=== PATIENT | male | born 1990 | race Caucasian/White ===

== ENCOUNTER 2016-08-07 11:24 | Emergency (ER) | payer SELFPAY ==
[~2016-08-07] VITALS: Ht 190.5 cm; Wt 71.6 kg
[~2016-08-07 11:24] MED LIST: CEPH500T PO
[2016-08-07 11:34] VITALS: BP 113/78; PULSE 89; RESP 16; TEMP 98.2; O2SAT 98
--- NOTE | 2016-08-07 12:04 | PD ---
HPI Chief Complaint: Injury Time Seen by Provider: 11:35 Travel History International Travel<30 days: No Contact w/Intl Traveler<30days: No Traveled to known affect area: No History of Present Illness HPI Patient is a 26-year-old male who presents emergency Department for evaluation of right hand pain. Patient states he punched a wall 3 days ago. Since that time he's had pain, swelling, and bruising. He's been utilizing ice and had a compression wrap on it on arrival. He states his pain is a 6/10. He denies any numbness or tingling in his hand, he states his pain is aching and throbbing. He denies any other complaints at this time, he does state that he was intoxicated when the event happened and is unsure of details. [facility] Past Medical History Medical History: Denies Significant Hx Diminished Hearing: No Immunizations Current: No Past Surgical History Neurologic Surgery: Yes (RODS IN BACK ) Pacemaker: No Other Surgery: Yes Social History Alcohol Use: Yes (SOCIALLY) Tobacco Use: Yes (1 PPD) Substance Use: No Allergies-Medications (Allergen,Severity, Reaction): Coded Allergies: Morphine (Verified Adverse Reaction, Unknown, Nausea/Vomiting, 08/07/16) Reported Meds & Prescriptions Reported Meds & Active Scripts Active Tramadol (Tramadol HCl) 50 Mg Tab 50 Mg PO Q6H PRN Review of Systems Except as stated in HPI: all other systems reviewed are Neg Musculoskeletal: Positive: Myalgias, Arthralgias, Limited ROM, Edema, Pain Skin: Positive Change in Pigmentation Physical Exam Narrative GENERAL: Well-nourished, well-developed patient. SKIN: Warm and dry. HEAD: Normocephalic. EYES: No scleral icterus. No injection or drainage. NECK: Supple, trachea midline. No JVD or lymphadenopathy. CARDIOVASCULAR: Regular rate and rhythm without murmurs, gallops, or rubs. RESPIRATORY: Breath sounds equal bilaterally. No accessory muscle use. GASTROINTESTINAL: Abdomen soft, non-tender, nondistended. MUSCULOSKELETAL: No cyanosis, edema noted to the right hand on the dorsal aspect and in the second through fourth fingers. Ecchymosis noted to the volar aspect of the right hand as well as the dorsal aspect. Positive radial pulse, brisk less than 3 second capillary refill. BACK: Nontender without obvious deformity. No CVA tenderness. Data Data Last Documented VS Vital Signs Date Time Temp Pulse Resp B/P Pulse Ox O2 Delivery O2 Flow Rate FiO2 08/07/16 11:34 98.2 89 16 113/78 98 Orders Hand, Complete ([id number]) (08/07/16 ) Ice/Cold Pack (08/07/16 11:41) Splint Or Brace Apply/Monitor (08/07/16 13:33) Support Splint (08/07/16 13:33) MDM Medical Decision Making Medical Screen Exam Complete: Yes Emergency Medical Condition: Yes Interpretation(s) Last Impressions Hand X-Ray 08/07/16 0000 Signed Impressions: Service Date/Time: Sunday, August 07, 2016 11:51 - CONCLUSION: Fracture fourth metacarpal. Valdo Hemphill MD Vital Signs Date Time Temp Pulse Resp B/P Pulse Ox O2 Delivery O2 Flow Rate FiO2 08/07/16 11:34 98.2 89 16 113/78 98 Differential Diagnosis Fracture versus sprain versus strain versus dislocation versus other Narrative Course Patient's 26-year-old male who presents emergency evaluation of right hand pain and swelling after punching a wall or a window 3 days ago. Patient is neurovascularly intact. There is edema and ecchymosis noted to the right hand. Motor function and sensory are intact. Imaging ordered and pending. Patient has a mildly displaced fourth metacarpal fracture. Patient was placed in ulnar gutter splint. Mandatory referral was made for outpatient follow-up with hand surgeon. Patient was advised to return to emergency department if he was unable to follow up with specialist. He was advised to return to emergency department immediately for any new or worsening symptoms. Patient verbalized understanding of these instructions. Patient stable for discharge. Diagnosis Primary Impression: Hand fracture Qualified Code: S62.91XA - Hand fracture, right, closed, initial encounter Referrals: Rolf Pineda III, MD 1 week Patient Instructions: General Instructions, Hand Fracture (ED) Additional Instructions: Follow-up with hand surgeon, a mandatory referral has been made for you Keep extremity elevated to help alleviate swelling Take medications as directed Do not drive or operate heavy machinery while taking narcotic pain medication. Do not mix narcotic pain medication with alcohol as this may increase sedative effects or cause respiratory depression Return to emergency department immediately for any new or worsening symptoms or if your unable to follow-up with hand surgeon Med/Other Pt SpecificInfo: Prescription(s) given Scripts Ibuprofen 800 Mg [id number] Mg PO Q6HR PRN (PAIN) 10 Days Ref 0 Prov:Zoe Worthington 08/07/16 Tramadol 50 Mg Tab50 Mg PO Q6H PRN (PAIN) #12 TAB Ref 0 Prov:Giancarlo Vivas MD 08/07/16 Disposition: 01 DISCHARGE HOME Condition: Stable Zoe Worthington Aug 07, 2016 12:04
--- NOTE | 2016-08-07 13:24 | RADHPO ---
EXAM DATE/TIME: 08/07/2016 11:51 [facility] COMPARISON: No previous studies available for comparison. INDICATIONS : Hit window with hand, has pain and swelling MEDICAL HISTORY : None. SURGICAL HISTORY : None. ENCOUNTER: Initial ACUITY: 3 calix PAIN SCORE: 8/10 LOCATION: Right hand FINDINGS: Three view examination of the right hand demonstrates soft tissue swelling and mildly displaced fract ure base of the fourth metacarpal. Remaining carpal bones are intact. Bony mineralization is normal. CONCLUSION: Fracture fourth metacarpal. Valdo Hemphill MD on August 07, 2016 at 13:22 Board Certified Radiologist. This report was verified electronically.
[2016-08-07] MEDS ORDERED: TRAM50TA PO (13:44)
[2016-08-07] MEDS ORDERED: IBUP800T23 PO (13:49)
[2016-08-11] MEDS ORDERED: NORC5TAB PO (14:45)
[2016-08-11] MEDS ORDERED: CEPH-460 PO (14:45)
== END 2016-08-07 13:59 | disposition home or self-care (01) ==
LOC: PHEFT 11:24
DX: S62.324A Displaced fracture of shaft of fourth metacarpal bone, right hand, initial encounter for closed fracture (principal); W22.01XA Walked into wall, initial encounter; F17.210 Nicotine dependence, cigarettes, uncomplicated
CPT/HCPCS: 29125; 73130

== ENCOUNTER → 2016-08-11 | Day surgery (SDC) | payer SELFPAY ==
[~2016-08-11] VITALS: Ht 193 cm; Wt 68.0 kg
[~2016-08-11] MED LIST changes: +*MEPERIDINE 25 MG INJ VIAL PERIprocedural Use ONLY ONE; +ACETAMINOPHEN 1000 MG/100 ML VIAL IV ONE; +AMOX500T PO; +BUPIVACAINE HCL PF 0.5% 30 ML VIAL ONE; +CEPH-460 PO; -CEPH500T PO; +HYDR1SOL3 PO; +IBUP800T23 PO; +LACTATED RINGER'S 1000 ML INJ 1,000 ML ONE; +LIDOCAINE HCL 2% 50 ML VIAL ONE; +MAGICADU2 SWISH-SWAL; +MEPERIDINE HCL 25 MG/ML VIAL ONE; +MIDAZOLAM HCL 2 MG/2 ML VIAL ONE; +NORC5TAB PO; +ONDANSETRON HCL 4 MG/2 ML VIAL IV PUSH ONE; +PROPOFOL 200 MG/20 ML AMP IV ONE; +SODIUM CHLORIDE 0.9% INJ 50 ML ONE; +TRAM50TA PO; +ZOFR4TAB3 SL; +[UNRECOGNIZED DRUG - CODE] PO; +ceFAZolin INJ 1,000 MG VIAL ONE; +oxyCODONE/ACETAMINOPHEN 5 MG/325 MG TAB ONE
[2016-08-11 11:05] LABS: MEAN CORPUSCULAR HGB CONC 36.2 % (32.0-36.0)
[2016-08-11 11:25] VITALS: BP 112/75; PULSE 74; RESP 16; TEMP 98; O2SAT 99
[2016-08-11 12:11] LABS: HEMATOCRIT 29.4 % (39.0-51.0); MEAN CELL VOLUME 91.2 FL (80.0-100.0); PLATELET COUNT 160 TH/MM3 (150-450); RED BLOOD COUNT 3.22 MIL/MM3 (4.50-5.90); RED CELL DISTRIBUTION WIDTH 12.8 % (11.6-17.2); WHITE BLOOD COUNT 3.9 TH/MM3 (4.0-11.0)
[2016-08-11 12:16] LABS: REVIEW FLAG FINAL
--- NOTE | 2016-08-11 14:46 | HHI.PR ---
Immediate Post Op Note Procedure Date: Aug 11, 2016 Pre Op Diagnosis: (1) Fracture of fourth metacarpal bone of right hand (2) Closed dislocation of fifth metacarpal bone of right hand Post Op Diagnosis: Surgeon: Rolf Pineda III Water Project Engineer(s): rustam Procedure: CRPP right 4th metacarpal CRPP right 5th CMC fracture dislocation Anesthesia: General, Local Drains: None IVF Patient to: PACU Patient Condition: Good Implant/Devices: SEE IMPLANT LOG (if applicable) Rolf Pineda III, MD Aug 11, 2016 14:46
[2016-08-11 17:15] VITALS: BP 127/88; PULSE 58; RESP 16; TEMP 98.1; O2SAT 99
--- NOTE | 2016-08-12 07:59 | MP ---
cc: ROLF PINEDA III, M.D. DATE OF OPERATION 08/11/2016 PREOPERATIVE DIAGNOSES 1. Right fourth metacarpal fracture. 2. Right fifth CMC fracture-dislocation. PROCEDURE 1. Closed reduction and percutaneous pinning right fifth CMC fracture dislocation. 2. Closed reduction and percutaneous pinning right fourth metacarpal. 3. Use of image intensifier. SURGEON Rolf Pineda III, MD PROCEDURE The patient was brought to the operating room and placed supine on the operating table. The correct side and site of surgery were verified with members of each team in the room multiple times including the patient and myself. After adequate preoperative markings and preoperative written consent were verified by everyone and after adequate preoperative time-out was performed to everyone's satisfaction and, after adequate general anesthesia had been achieved, the right upper extremity was prepped and draped in the traditional sterile surgical fashion. A 50/50 mixture of 2% plain lidocaine and 0.5% plain Marcaine was injected into the areas of the injuries. Examination in real-time under mini C-arm fluoroscopy was performed that showed completely dislocated fifth CMC joint. This was then reduced, held in place and secured in place with two separate 0.045-cm K-wires at differing angles. The K-wires were tailored to length, cut bent and Jurgan's balls applied. Doing this helped nearly-completely reducing the fourth metacarpal and I was able to get this a bit better reduced with another K-wire placed in a longitudinal fashion in a dorsal to volar direction securing the fracture. Passive range of motion examination was performed and was full. There was no mal-angulation or malrotation of any fingers. Additional local anesthetic was injected for postoperative pain relief. The pins were tailored to length, cut, bent, Jurgan's balls applied. The hand and arm were thoroughly cleansed and dried. Betadine and Xeroform was applied around the pin sites and a well-padded, well molded ulnar volar splint keeping the third, fourth and fifth fingers completely immobilized was made in the usual fashion. The patient was awakened from anesthesia and transported to the Post-Anesthesia Care Unit awake and in stable condition at the end of the case. The sponge, needle and instrument counts were correct at the end of the case as reported by the nurses in the room. Capillary refill was less than 2 seconds in all fingertips the entire time. MD SHARON Mcintyre III/MARLENI /2:37 PM /7:45 AM
== END | disposition home or self-care (01) ==
LOC: CSDC 10:55
PROVIDERS: ATTEND Orthopaedic Surgery Hand Surgery
DX: S62.304A Unspecified fracture of fourth metacarpal bone, right hand, initial encounter for closed fracture (principal); S63.266A Dislocation of metacarpophalangeal joint of right little finger, initial encounter; W22.09XA Striking against other stationary object, initial encounter
CPT/HCPCS: 01820; 26608; 36415; 76000; 85027; J0131; J0690; J2175; J2250; J2405; J3010; J7120

== ENCOUNTER 2016-09-26 15:02 | Emergency (ER) | payer SELFPAY ==
[~2016-09-26] VITALS: Ht 193 cm; Wt 70.0 kg
[2016-09-26 15:18] VITALS: BP 118/78; PULSE 100; RESP 20; TEMP 100.4; O2SAT 95
[2016-09-26 15:29] VITALS: BP 119/74; PULSE 94; RESP 18; TEMP 101; O2SAT 97
--- NOTE | 2016-09-26 15:41 | PD ---
HPI Chief Complaint: Cold / Flu Symptoms Time Seen by Provider: 15:36 Travel History International Travel<30 days: No Contact w/Intl Traveler<30days: No Traveled to known affect area: No History of Present Illness HPI Patient presents with complaints of general malaise subjective fever and cough since . Reports nausea and vomiting since last night. Denies any new rashes. Positive smoker. Reports no bowel movement for 3-4 days. No new rashes. No sick contacts. PFSH Past Medical History Medical History: Denies Significant Hx Cancer: No Cardiovascular Problems: No Diabetes: No Diminished Hearing: No Endocrine: No Genitourinary: No Hepatitis: No Hiatal Hernia: No Immune Disorder: No Musculoskeletal: Yes (MULTIPLE FRACTURES IN PAST) Neurologic: No Psychiatric: No Reproductive: No Respiratory: No Immunizations Current: No Thyroid Disease: No Tetanus Vaccination: Unknown Influenza Vaccination: No Past Surgical History Surgical History: No Previous Surgery Abdominal Surgery: No Body Medical Devices: RODS IN BACK Cardiac Surgery: No Ear Surgery: No Endocrine Surgery: No Eye Surgery: No Genitourinary Surgery: No Gynecologic Surgery: No Neurologic Surgery: Yes (RODS IN BACK ) Oral Surgery: No Pacemaker: No Thoracic Surgery: No Other Surgery: Yes Social History Alcohol Use: No Tobacco Use: Yes (07/05 ppd) Substance Use: No Allergies-Medications (Allergen,Severity, Reaction): Coded Allergies: Morphine (Verified Adverse Reaction, Unknown, Nausea/Vomiting, 09/26/16) Reported Meds & Prescriptions Reported Meds & Active Scripts Active No Active Prescriptions or Reported Medications Review of Systems General / Constitutional: Positive: Fever Respiratory: Positive: Cough Gastrointestinal: Positive: Nausea, Vomiting Musculoskeletal: Positive: Myalgias Physical Exam Narrative GENERAL: Well-nourished, well-developed patient. SKIN: Warm and dry. HEAD: Normocephalic. EYES: No scleral icterus. No injection or drainage. NECK: Supple, trachea midline. No JVD or lymphadenopathy. CARDIOVASCULAR: Regular rate and rhythm without murmurs, gallops, or rubs. RESPIRATORY: Breath sounds equal bilaterally. No accessory muscle use. GASTROINTESTINAL: Abdomen soft, non-tender, nondistended. MUSCULOSKELETAL: No cyanosis, or edema. BACK: Nontender without obvious deformity. No CVA tenderness. Data Data Last Documented VS Vital Signs Date Time Temp Pulse Resp B/P Pulse Ox O2 Delivery O2 Flow Rate FiO2 09/26/16 15:29 101.0 94 18 119/74 97 Room Air Orders Ondansetron Inj (Zofran Inj) (09/26/16 15:45) Sodium Chlor 0.9% 1000 Ml Inj (Ns 1000 M (09/26/16 15:45) Influenzae A/B Antigen (09/26/16 15:36) MDM Medical Decision Making Medical Screen Exam Complete: Yes Emergency Medical Condition: Yes Differential Diagnosis Influenza, pneumonia, viral gastroenteritis Narrative Course Assessment and plan discussed with patient at bedside Physician Communication Physician Communication Case discussed and care transferred to Dr. Monroy Scripts No Active Prescriptions or Reported Meds Khari Howe MD Sep 26, 2016 15:41
[2016-09-26] MEDS ORDERED: ONDANSETRON HCL 4 MG/2 ML VIAL IV PUSH ONE (15:45)
[2016-09-26] MEDS ORDERED: SODIUM CHLOR 0.9% 1000 ML INJ 1,000 ML IV ONE ×2 (15:45→17:15)
[2016-09-26 16:24] LABS: AUTOMATED NEUTROPHIL # 4.8 TH/MM3 (1.8-7.7); BASOPHIL % 0.4 % (0.0-2.0); HEMATOCRIT 45.5 % (39.0-51.0); HEMO FLAGS DIFF FINAL; LYMPH % 7.4 % (9.0-44.0); LYMPHOCYTE # 0.4 TH/MM3 (1.0-4.8); MEAN CELL VOLUME 90.9 FL (80.0-100.0); MEAN CORPUSCULAR HEMOGLOBIN 30.1 PG (27.0-34.0); MEAN CORPUSCULAR HGB CONC 33.2 % (32.0-36.0); MONO % 7.7 % (0.0-8.0); NEUT % 84.5 % (16.0-70.0); PLATELET COUNT 171 TH/MM3 (150-450); RED BLOOD COUNT 5.01 MIL/MM3 (4.50-5.90); RED CELL DISTRIBUTION WIDTH 12.4 % (11.6-17.2); WHITE BLOOD COUNT 5.6 TH/MM3 (4.0-11.0)
[2016-09-26 16:35] VITALS: TEMP 103.1
[2016-09-26 16:37] LABS: CHLORIDE 99 MEQ/L (98-107); SODIUM (NA) 136 MEQ/L (136-145)
[2016-09-26 16:40] LABS: BICARBONATE 26.7 MEQ/L (21.0-32.0)
[2016-09-26 16:41] LABS: ANION GAP 10 MEQ/L (5-15); BLOOD UREA NITROGEN 9 MG/DL (7-18)
[2016-09-26 16:44] LABS: ALT (GPT) 20 U/L (12-78); AST (GOT) 22 U/L (15-37); GLOMERULAR FILTRATION RATE 108 ML/MIN (>89)
[2016-09-26] MEDS ORDERED: ACETAMINOPHEN 500 MG CPLT PO ONE (16:45)
[2016-09-26] MEDS ORDERED: KETOROLAC TROMETHAMINE 30 MG/ML (IVP) VIAL IV PUSH ONE (16:45)
[2016-09-26 16:46] LABS: TOTAL BILIRUBIN ADULT 0.6 MG/DL (0.2-1.0)
[2016-09-26 16:47] LABS: ALKALINE PHOSPHATASE 76 U/L (45-117)
--- NOTE | 2016-09-26 17:14 | RADHPO ---
EXAM DATE/TIME: 09/26/2016 16:22 [facility] COMPARISON: No previous studies available for comparison. INDICATIONS : Fever,cough,short of breath, chest pains with cough and inspiration MEDICAL HISTORY : None. SURGICAL HISTORY : Spinal ENCOUNTER: Initial ACUITY: 4 - 6 days PAIN SCORE: 9/10 LOCATION: Bilateral chest FINDINGS: A single view of the chest demonstrates the lungs to be symmetrically aerated without evidence of mas s, infiltrate or effusion. The cardiomediastinal contours are unremarkable. Postoperative fusion tho racic spine. CONCLUSION: 1. No acute findings. Previous fusion thoracic spine. Harrison Moreno MD on September 26, 2016 at 17:12 Board Certified Radiologist. This report was verified electronically.
[2016-09-26] MEDS ORDERED: POTASSIUM CHLORIDE 20 MEQ CONTROLLED RELEASE TAB PO ONE (17:15)
[2016-09-26] MEDS ORDERED: cefTRIAXone INJ 1,000 MG in SODIUM CHLORIDE 0.9% INJ 100 ML IV ONE (17:30)
[2016-09-26] MEDS ORDERED: AMOX500T PO (18:27)
--- NOTE | 2016-09-26 18:29 | PD ---
HPI Chief Complaint: Cold / Flu Symptoms Time Seen by Provider: 16:18 Travel History International Travel<30 days: No Contact w/Intl Traveler<30days: No Traveled to known affect area: No History of Present Illness HPI This 26-year-old male presented with fever and cough. He's had some nausea and vomiting. No sick for several days. He was seen initially by Dr. Howe who ordered a chest which is come back negative area and he has ordered blood work. His white count is 5000. His potassium is 3. Chest x-ray is read as negative. Patient has developed fever as high as 103. He is a smoker and is been coughing up some thick yellow phlegm. This is most likely a viral illness however since he is a smoker I will cover him with antibiotics. He has been given Rocephin and will be given amoxicillin as an outpatient. Impression is acute bronchitis PFSH Past Medical History Medical History: Denies Significant Hx Cancer: No Cardiovascular Problems: No Diabetes: No Diminished Hearing: No Endocrine: No Genitourinary: No Hepatitis: No Hiatal Hernia: No Immune Disorder: No Musculoskeletal: Yes (MULTIPLE FRACTURES IN PAST) Neurologic: No Psychiatric: No Reproductive: No Respiratory: No Immunizations Current: No Thyroid Disease: No Tetanus Vaccination: Unknown Influenza Vaccination: No Past Surgical History Surgical History: No Previous Surgery Abdominal Surgery: No Body Medical Devices: RODS IN BACK Cardiac Surgery: No Ear Surgery: No Endocrine Surgery: No Eye Surgery: No Genitourinary Surgery: No Gynecologic Surgery: No Neurologic Surgery: Yes (RODS IN BACK ) Oral Surgery: No Pacemaker: No Thoracic Surgery: No Other Surgery: Yes Social History Alcohol Use: No Tobacco Use: Yes (/2 ppd) Substance Use: No Allergies-Medications (Allergen,Severity, Reaction): Coded Allergies: Morphine (Verified Adverse Reaction, Unknown, Nausea/Vomiting, 09/26/16) Reported Meds & Prescriptions Reported Meds & Active Scripts Active No Active Prescriptions or Reported Medications Review of Systems Except as stated in HPI: all other systems reviewed are Neg General / Constitutional: Positive: Fever, Chills Respiratory: Positive: Cough, Shortness of Breath Gastrointestinal: Positive: Nausea Skin: No Rash Neurologic: Positive: Weakness Physical Exam Narrative Well-developed maleGENERAL: [-] SKIN: Focused skin assessment warm/dry. HEAD: Atraumatic. Normocephalic. EYES: Pupils equal and round. No scleral icterus. No injection or drainage. ENT: No nasal bleeding or discharge. Mucous membranes pink and moist. NECK: Trachea midline. No JVD. CARDIOVASCULAR: Regular rate and rhythm. No murmur appreciated. RESPIRATORY: No accessory muscle use. No rhonchi. Breath sounds equal bilaterally. GASTROINTESTINAL: Abdomen soft, non-tender, nondistended. Hepatic and splenic margins not palpable. MUSCULOSKELETAL: No obvious deformities. No clubbing. No cyanosis. No edema. NEUROLOGICAL: Awake and alert. No obvious cranial nerve deficits. Motor grossly within normal limits. Normal speech. PSYCHIATRIC: Appropriate mood and affect; insight and judgment normal. Data Data Last Documented VS Vital Signs Date Time Temp Pulse Resp B/P Pulse Ox O2 Delivery O2 Flow Rate FiO2 09/26/16 16:35 103.1 09/26/16 15:29 94 18 119/74 97 Room Air Orders Ondansetron Inj (Zofran Inj) (09/26/16 15:45) Sodium Chlor 0.9% 1000 Ml Inj (Ns 1000 M (09/26/16 15:45) Influenzae A/B Antigen (09/26/16 15:36) Complete Blood Count With Diff (09/26/16 16:15) Chest, Single Ap (09/26/16 ) Comprehensive Metabolic Panel (09/26/16 16:15) Acetaminophen (Tylenol) (09/26/16 16:45) Ketorolac Inj (Toradol Inj) (09/26/16 16:45) Sodium Chlor 0.9% 1000 Ml Inj (Ns 1000 M (09/26/16 17:15) Potassium Chloride (Kcl) (09/26/16 17:15) Ceftriaxone Inj (Rocephin Inj) (09/26/16 17:30) Labs Laboratory Tests Test 09/26/16 16:20 White Blood Count 5.6 TH/MM3 Red Blood Count 5.01 MIL/MM3 Hemoglobin 15.1 GM/DL Hematocrit 45.5 % Mean Corpuscular Volume 90.9 FL Mean Corpuscular Hemoglobin 30.1 PG Mean Corpuscular Hemoglobin 33.2 % Concent Red Cell Distribution Width 12.4 % Platelet Count 171 TH/MM3 Mean Platelet Volume 9.0 FL Neutrophils (%) (Auto) 84.5 % Lymphocytes (%) (Auto) 7.4 % Monocytes (%) (Auto) 7.7 % Eosinophils (%) (Auto) 0.0 % Basophils (%) (Auto) 0.4 % Neutrophils # (Auto) 4.8 TH/MM3 Lymphocytes # (Auto) 0.4 TH/MM3 Monocytes # (Auto) 0.4 TH/MM3 Eosinophils # (Auto) 0.0 TH/MM3 Basophils # (Auto) 0.0 TH/MM3 CBC Comment DIFF FINAL Differential Comment Sodium Level 136 MEQ/L Potassium Level 3.0 MEQ/L Chloride Level 99 MEQ/L Carbon Dioxide Level 26.7 MEQ/L Anion Gap 10 MEQ/L Blood Urea Nitrogen 9 MG/DL Creatinine 0.85 MG/DL Estimat Glomerular Filtration 108 ML/MIN Rate Random Glucose 111 MG/DL Calcium Level 8.3 MG/DL Total Bilirubin 0.6 MG/DL Aspartate Amino Transf 22 U/L (AST/SGOT) Alanine Aminotransferase 20 U/L (ALT/SGPT) Alkaline Phosphatase 76 U/L Total Protein 7.1 GM/DL Albumin 3.6 GM/DL MDM Medical Decision Making Medical Screen Exam Complete: Yes Emergency Medical Condition: Yes Medical Record Reviewed: Yes Differential Diagnosis Differential includes pneumonia, bronchitis, viral illness Narrative Course Chest x-ray negative. White count 5000. He spiked fever to 103. He has been given Rocephin and be released with amoxicillin Diagnosis Primary Impression: Acute bronchitis Scripts Amoxicillin 500 Mg Qjk131 Mg PO TID #21 TAB Ref 0 Prov:Shaheen Ferrer MD 09/26/16 Disposition: 01 DISCHARGE HOME Condition: Stable Shaheen Ferrer MD Sep 26, 2016 18:29
[2016-09-26 18:37] VITALS: BP 101/49; PULSE 62; RESP 16; O2SAT 96
[2016-09-26 19:17] VITALS: TEMP 98.5
== END 2016-09-26 19:25 | disposition home or self-care (01) ==
LOC: PHED 15:02
DX: J20.9 Acute bronchitis, unspecified (principal); F17.210 Nicotine dependence, cigarettes, uncomplicated
CPT/HCPCS: 71010; 80053; 85025; 87804; 96361; 96365; 96375; 99284; J0696; J1885; J2405; J7030

== ENCOUNTER 2016-11-27 14:35 | Emergency (ER) | payer SELFPAY ==
[~2016-11-27] VITALS: Ht 190.5 cm; Wt 66.2 kg
[2016-11-27 14:39] VITALS: BP 113/82; PULSE 91; RESP 16; TEMP 98.6; O2SAT 98
[2016-11-27] MEDS ORDERED: SODIUM CHLOR 0.9% 1000 ML INJ 1,000 ML IV SCH (14:55)
[2016-11-27] MEDS ORDERED: LIDOCAINE VISCOUS 2% SOLN 15 ML UDC PO ONE (15:00)
[2016-11-27] MEDS ORDERED: ONDANSETRON HCL 4 MG/2 ML VIAL IVP ONE (15:00)
[2016-11-27] MEDS ORDERED: diphenhydrAMINE HCL ELIXIR 12.5 MG/5 ML CUP PO ONE (15:00)
[2016-11-27] MEDS ORDERED: ALUMINUM/MAGNESIUM/SIMETH 30 ML CUP PO ONE (15:00)
[2016-11-27] MEDS ORDERED: [UNRECOGNIZED DRUG - CODE] PO (15:06)
[2016-11-27] MEDS ORDERED: MAGICADU2 SWISH-SWAL (15:06)
[2016-11-27] MEDS ORDERED: HYDR1SOL3 PO (15:07)
[2016-11-27] MEDS ORDERED: ZOFR4TAB3 SL (15:07)
--- NOTE | 2016-11-27 15:07 | PD ---
HPI Chief Complaint: ENT Complaint Time Seen by Provider: 14:44 Travel History International Travel<30 days: No Contact w/Intl Traveler<30days: No Traveled to known affect area: No History of Present Illness HPI 26-year-old male complains of sores in the mouth, sore throat, dysphagia, nausea and vomiting. Patient states that the sore throat started 6 days ago. Patient has intermittent nausea vomiting with dysphagia for the past 5 days. Patient denies any fever chills. Patient denies any earache. Patient denies abdominal pain. Patient denies any dysuria or frequency. PFSH Past Medical History Cancer: No Cardiovascular Problems: No Diabetes: No Diminished Hearing: No Endocrine: No Gastrointestinal Disorders: No Genitourinary: No Hepatitis: No Hiatal Hernia: No Hypertension: No Immune Disorder: No Musculoskeletal: Yes (MULTIPLE FRACTURES IN PAST) Neurologic: No Psychiatric: No Reproductive: No Respiratory: No Immunizations Current: No Thyroid Disease: No Tetanus Vaccination: < 5 Years Past Surgical History Abdominal Surgery: No Body Medical Devices: RODS IN BACK Cardiac Surgery: No Ear Surgery: No Endocrine Surgery: No Eye Surgery: No Genitourinary Surgery: No Gynecologic Surgery: No Neurologic Surgery: Yes (RODS IN BACK ) Oral Surgery: No Pacemaker: No Thoracic Surgery: No Other Surgery: Yes Social History Alcohol Use: No Tobacco Use: Yes (1/2 ppd) Substance Use: No Allergies-Medications (Allergen,Severity, Reaction): Coded Allergies: Morphine (Verified Adverse Reaction, Unknown, Nausea/Vomiting, 10/22/16) Reported Meds & Prescriptions Reported Meds & Active Scripts Active Zofran Odt (Ondansetron Odt) 4 Mg Tab 4 Mg SL Q6HR PRN Hydrocodone-Acetaminophen Liq 7.5-325 Mg/15 Ml Soln 10 Ml PO Q6H PRN Zovirax Liq (Acyclovir) 200 Mg/5 Ml Susp 800 Mg PO QID 7 Days Magic Mouthwash Adult Liq (Multi-Ingredient Mouthwash/Gargle) 120 Ml Susp 10 Ml SWISH-SWAL ACHS Each 5mL contains: Nystatin 200,000units, Diphenhydramine 4.25mg, Viscous Lidocaine 10mg, Goldstein syrup 0.8 mL Review of Systems General / Constitutional: No: Fever Eyes: No: Visual changes HENT: No: Headaches Cardiovascular: No: Chest Pain or Discomfort Respiratory: No: Shortness of Breath Gastrointestinal: No: Abdominal Pain Genitourinary: No: Dysuria Musculoskeletal: No: Pain Skin: No Rash Neurologic: No: Weakness Psychiatric: No: Depression Endocrine: No: Polydipsia Hematologic/Lymphatic: No: Easy Bruising Physical Exam Narrative GENERAL: Well-nourished, well-developed patient. SKIN: Focused skin assessment warm/dry. HEAD: Normocephalic. EYES: No scleral icterus. No injection or drainage. NECK: Supple, trachea midline. No JVD. Patient has mild anterior cervical lymphadenopathy. No meningismus CARDIOVASCULAR: Regular rate and rhythm without murmurs, gallops, or rubs. RESPIRATORY: Breath sounds equal bilaterally. No accessory muscle use. GASTROINTESTINAL: Abdomen soft, non-tender, nondistended. MUSCULOSKELETAL: No cyanosis, or edema. BACK: Nontender without obvious deformity. No CVA tenderness. Patient has diffuse vesicular Lesions on the mucous membrane of the mouth, the gum, the throat. Mild anterior cervical lymphadenopathy noted. Data Data Last Documented VS Vital Signs Date Time Temp Pulse Resp B/P Pulse Ox O2 Delivery O2 Flow Rate FiO2 11/27/16 14:39 98.6 91 16 113/82 98 Orders Basic Metabolic Panel (Bmp) (11/27/16 14:55) Complete Blood Count With Diff (11/27/16 14:55) Iv Access Insert/Monitor (11/27/16 14:55) Ondansetron Inj (Zofran Inj) (11/27/16 15:00) Sodium Chlor 0.9% 1000 Ml Inj (Ns 1000 M (11/27/16 14:55) Al-Mag Hy-Si 40-40-4 Mg/Ml Liq (Mag-Al P (11/27/16 15:00) Lidocaine 2% Viscous (Xylocaine 2% Visco (11/27/16 15:00) Diphenhydramine Liq (Benadryl Liq) (11/27/16 15:00) Labs Laboratory Tests Test 11/27/16 15:10 White Blood Count 5.3 TH/MM3 Red Blood Count 5.01 MIL/MM3 Hemoglobin 15.3 GM/DL Hematocrit 45.7 % Mean Corpuscular Volume 91.2 FL Mean Corpuscular Hemoglobin 30.5 PG Mean Corpuscular Hemoglobin 33.4 % Concent Red Cell Distribution Width 12.9 % Platelet Count 199 TH/MM3 Mean Platelet Volume 8.6 FL Neutrophils (%) (Auto) 66.1 % Lymphocytes (%) (Auto) 22.3 % Monocytes (%) (Auto) 10.1 % Eosinophils (%) (Auto) 0.8 % Basophils (%) (Auto) 0.7 % Neutrophils # (Auto) 3.6 TH/MM3 Lymphocytes # (Auto) 1.2 TH/MM3 Monocytes # (Auto) 0.5 TH/MM3 Eosinophils # (Auto) 0.0 TH/MM3 Basophils # (Auto) 0.0 TH/MM3 CBC Comment DIFF FINAL Differential Comment Sodium Level 140 MEQ/L Potassium Level 4.0 MEQ/L Chloride Level 104 MEQ/L Carbon Dioxide Level 30.0 MEQ/L Anion Gap 6 MEQ/L Blood Urea Nitrogen 14 MG/DL Creatinine 0.71 MG/DL Estimat Glomerular Filtration 133 ML/MIN Rate Random Glucose 81 MG/DL Calcium Level 8.8 MG/DL MDM Medical Decision Making Medical Screen Exam Complete: Yes Emergency Medical Condition: Yes Interpretation(s) 16 10 PM. CBC within normal limit. BMP within normal limit. Differential Diagnosis Differential diagnosis including gingival stomatitis, pharyngitis, bronchitis, pneumonia. Narrative Course 26-year-old male with sores in the mouth, sore throat, dysphagia, nausea vomiting. Normal saline solution 1 L IV bolus. Magic mouthwash, combination of Maalox, Benadryl, viscous lidocaine given. Diagnosis Primary Impression: Gingivostomatitis Patient Instructions: General Instructions Additional Instructions: Magic mouthwash as directed. Zovirax as directed. Follow-up with personal physician. Return if persistent problem or worse. Encourage by mouth fluid. Med/Other Pt SpecificInfo: Prescription(s) given Scripts Ondansetron Odt (Zofran Odt)4 Mg Tab4 Mg SL Q6HR PRN (Nausea/Vomiting) #10 TAB Prov:Alexander Pineda MD 11/27/16 Hydrocodone-Acetaminophen Liq 7.5-325 Mg/15 Ml Soln10 Ml PO Q6H PRN (PAIN) #90 ML Ref 0 Prov:Alexander Pineda MD 11/27/16 Acyclovir Liq (Zovirax Liq)200 Mg/5 Ml Imci093 Mg PO QID 7 Days Ref 0 Prov:Alexander Pineda MD 11/27/16 Endhkrvu-Loptfvbxwqtjlwe-Uhlqeufin Liq (Magic Mouthwash Adult Liq)120 Ml Susp10 Ml SWISH-SWAL ACHS #180 ML Ref 0 Each 5mL contains: Nystatin 200,000units, Diphenhydramine 4.25mg, Viscous Lidocaine 10mg, Goldstein syrup 0.8 mL Prov:Alexander Pineda MD 11/27/16 Disposition: 01 DISCHARGE HOME Condition: Stable Alexander Pineda MD November 27, 2016 15:07
[2016-11-27 15:26] LABS: AUTOMATED NEUTROPHIL # 3.6 TH/MM3 (1.8-7.7); BASOPHIL % 0.7 % (0.0-2.0); EOSINOPHIL % 0.8 % (0.0-4.0); HEMATOCRIT 45.7 % (39.0-51.0); HEMO FLAGS DIFF FINAL; LYMPH % 22.3 % (9.0-44.0); LYMPHOCYTE # 1.2 TH/MM3 (1.0-4.8); MEAN CELL VOLUME 91.2 FL (80.0-100.0); MEAN CORPUSCULAR HEMOGLOBIN 30.5 PG (27.0-34.0); MEAN CORPUSCULAR HGB CONC 33.4 % (32.0-36.0); MONO % 10.1 % (0.0-8.0); NEUT % 66.1 % (16.0-70.0); PLATELET COUNT 199 TH/MM3 (150-450); RED BLOOD COUNT 5.01 MIL/MM3 (4.50-5.90); RED CELL DISTRIBUTION WIDTH 12.9 % (11.6-17.2); WHITE BLOOD COUNT 5.3 TH/MM3 (4.0-11.0)
[2016-11-27 16:56] VITALS: BP 115/86
== END 2016-11-27 16:58 | disposition home or self-care (01) ==
LOC: PHED 14:35
DX: K05.10 Chronic gingivitis, plaque induced (principal); F17.210 Nicotine dependence, cigarettes, uncomplicated
CPT/HCPCS: 80048; 85025; 96361; 96374; 99284; J2405; J7030

== ENCOUNTER 2017-01-06 20:52 | Emergency (ER) | payer SELFPAY ==
[~2017-01-06 20:52] MED LIST changes: -*MEPERIDINE 25 MG INJ VIAL PERIprocedural Use ONLY ONE; -ACETAMINOPHEN 1000 MG/100 ML VIAL IV ONE; -AMOX500T PO; -BUPIVACAINE HCL PF 0.5% 30 ML VIAL ONE; -CEPH-460 PO; -IBUP800T23 PO; -LACTATED RINGER'S 1000 ML INJ 1,000 ML ONE; -LIDOCAINE HCL 2% 50 ML VIAL ONE; -MEPERIDINE HCL 25 MG/ML VIAL ONE; -MIDAZOLAM HCL 2 MG/2 ML VIAL ONE; -NORC5TAB PO; -ONDANSETRON HCL 4 MG/2 ML VIAL IV PUSH ONE; -PROPOFOL 200 MG/20 ML AMP IV ONE; -SODIUM CHLORIDE 0.9% INJ 50 ML ONE; -TRAM50TA PO; -ceFAZolin INJ 1,000 MG VIAL ONE; -oxyCODONE/ACETAMINOPHEN 5 MG/325 MG TAB ONE
[2017-01-06 20:58] VITALS: BP 104/69; PULSE 75; RESP 20; TEMP 97.7; O2SAT 97
[2017-01-06] MEDS ORDERED: LIDOCAINE HCL 1% PF 30 ML VIAL ONE (21:46)
--- NOTE | 2017-01-06 21:52 | PD ---
HPI Chief Complaint: Skin Problem Time Seen by Provider: 21:46 Travel History International Travel<30 days: No Contact w/Intl Traveler<30days: No Traveled to known affect area: No History of Present Illness HPI 26-year-old male presents to the emergency room for evaluation of right second toe pain, swelling, and redness for the past 8 or 9 days. Patient states it started off as a small scratch and seemed to worsen over time. He tried to squeeze it but can only get clear drainage. He states he has to walk on the side of his foot because the pain is so bad. Denies fever, chills, nausea, vomiting, or streaking. Unknown last tetanus. PFSH Past Medical History Cancer: No Cardiovascular Problems: No Diabetes: No Diminished Hearing: No Endocrine: No Gastrointestinal Disorders: No Genitourinary: No Hepatitis: No Hiatal Hernia: No Hypertension: No Immune Disorder: No Musculoskeletal: Yes (MULTIPLE FRACTURES IN PAST) Neurologic: No Psychiatric: No Reproductive: No Respiratory: No Immunizations Current: No Thyroid Disease: No Past Surgical History Abdominal Surgery: No Body Medical Devices: RODS IN BACK Cardiac Surgery: No Ear Surgery: No Endocrine Surgery: No Eye Surgery: No Genitourinary Surgery: No Gynecologic Surgery: No Neurologic Surgery: Yes (RODS IN BACK ) Oral Surgery: No Pacemaker: No Thoracic Surgery: No Other Surgery: Yes Social History Alcohol Use: No Tobacco Use: Yes (/2 ppd) Substance Use: No Allergies-Medications (Allergen,Severity, Reaction): Coded Allergies: Morphine (Verified Adverse Reaction, Unknown, Nausea/Vomiting, 01/06/17) Reported Meds & Prescriptions Reported Meds & Active Scripts Active Zofran Odt (Ondansetron Odt) 4 Mg Tab 4 Mg SL Q6HR PRN Hydrocodone-Acetaminophen Liq 7.5-325 Mg/15 Ml Soln 10 Ml PO Q6H PRN Zovirax Liq (Acyclovir) 200 Mg/5 Ml Susp 800 Mg PO QID 7 Days Magic Mouthwash Adult Liq (Multi-Ingredient Mouthwash/Gargle) 120 Ml Susp 10 Ml SWISH-SWAL ACHS Each 5mL contains: Nystatin 200,000units, Diphenhydramine 4.25mg, Viscous Lidocaine 10mg, Goldstein syrup 0.8 mL Review of Systems Except as stated in HPI: all other systems reviewed are Neg Physical Exam Narrative GENERAL: Well-nourished, well-developed male in no acute distress. Afebrile. Ambulatory. SKIN: Focused skin assessment warm/dry. There is an indurated area in the right second toe which measures about 1 cm in diameter. It is fluctuant but there is no pointing or drainage. There is a zone of inflammation around it but no lymphangitis. HEAD: Normocephalic. EYES: No scleral icterus. No injection or drainage. NECK: Supple, trachea midline. No JVD or lymphadenopathy. CARDIOVASCULAR: Regular rate and rhythm without murmurs, gallops, or rubs. RESPIRATORY: Breath sounds equal bilaterally. No accessory muscle use. MUSCULOSKELETAL: No cyanosis. Mild to moderate edema of the right second toe. Extreme tenderness to palpation. Less than 2 second capillary refill distally. Data Data Last Documented VS Vital Signs Date Time Temp Pulse Resp B/P Pulse Ox O2 Delivery O2 Flow Rate FiO2 01/06/17 21:42 20 01/06/17 20:58 97.7 75 104/69 97 MDM Medical Decision Making Medical Screen Exam Complete: Yes Emergency Medical Condition: Yes Medical Record Reviewed: Yes Differential Diagnosis Paronychia, abscess, folliculitis Narrative Course 26-year-old male presents to the emergency room for evaluation of right second toe paronychia for the past 9 days. Vital signs stable. There is no lymphangitis. Abscess was drained, see procedure note for details. Patient discharged with Bactrim and told to follow-up with the primary care physician or return for worsening symptoms. He understands and agrees to plan. Procedures Procedure Narrative INCISION AND DRAINAGE OF ABSCESS: The area was prepped and was sterilely draped. A subcutaneous wheal of 1% lidocaine with a total number 3 mL was used to anesthetize the area properly. A number 11 scalpel was used to make a 0.5 cm incision across the area of the abscess. The abscess was drained, complex loculations were broken down, and irrigated with normal saline. Sterile dressing applied. HemaPrompt Point of Care Gastric Specimen Occult Blood: Negative Diagnosis Primary Impression: Paronychia of toe of right foot Referrals: Primary Care Physician Patient Instructions: General Instructions, Paronychia (ED) Additional Instructions: Rest and drink plenty of fluids. Take Bactrim as directed, until gone. Follow up with a primary care physician. Return to emergency room for worsening symptoms, as discussed. Med/Other Pt SpecificInfo: Prescription(s) given Disposition: 01 DISCHARGE HOME Condition: Stable Viviana French Jan 06, 2017 21:52
[2017-01-06] MEDS ORDERED: LIDOCAINE HCL 1% PF 30 ML VIAL INFIL ONE (22:00)
[2017-01-06] MEDS ORDERED: TETANUS/DIPHTHERIA TOXOID ADULT 0.5 ML VIAL IM ONE (22:00)
[2017-01-06] MEDS ORDERED: BACT800T5 PO (22:06)
[2017-01-06 22:24] VITALS: BP 110/62
== END 2017-01-06 22:26 | disposition home or self-care (01) ==
LOC: PHED 20:52
DX: L03.031 Cellulitis of right toe (principal)
CPT/HCPCS: 10060

== ENCOUNTER 2017-06-21 10:50 | Emergency (ER) | payer SELFPAY ==
[~2017-06-21] VITALS: Ht 182.9 cm; Wt 68.0 kg
[~2017-06-21 10:50] MED LIST changes: +BACT800T5 PO
[2017-06-21 10:52] VITALS: BP 144/83; PULSE 78; RESP 16; TEMP 97.9; O2SAT 99
--- NOTE | 2017-06-21 11:48 | RADRPT ---
EXAM DATE/TIME: 06/21/2017 11:17 [facility] COMPARISON: HAND RIGHT COMPLETE ([id number]), August 07, 2016, 11:51. INDICATIONS : Pain. MEDICAL HISTORY : None. SURGICAL HISTORY : Patient stated previous wrist surgery. ENCOUNTER: Initial ACUITY: 3 days PAIN SCORE: 8/10 LOCATION: Right Hand FINDINGS: Three view examination of the right hand demonstrates no soft tissue swelling, or dislocation. Transv erse nondisplaced fracture of the fourth metacarpal shaft The carpal bones appear intact. The inte rphalangeal and metacarpophalangeal joints are intact. Bony mineralization is normal. CONCLUSION: Transverse nondisplaced fracture of the fourth metacarpal shaft. Giancarlo Uriostegui MD on June 21, 2017 at 11:45 Board Certified Radiologist. This report was verified electronically.
--- NOTE | 2017-06-21 12:12 | PD ---
HPI Chief Complaint: Injury Time Seen by Provider: 11:38 Travel History International Travel<30 days: No Contact w/Intl Traveler<30days: No Traveled to known affect area: No History of Present Illness HPI 27-year-old male with right in pain 4 days. Patient reports he was roughhousing with friends on Tuesday injuring the hand. He reports he is unsure how the injury occurred because he was drinking heavily at night. He reports that the pain is isolated to the hand only. He has normal sensation and full range of motion of the wrist and all fingers. No other injuries. The severity is moderate. No aggravating or relieving factors. PFSH Past Medical History Medical History: Denies Significant Hx Cancer: No Cardiovascular Problems: No Diabetes: No Diminished Hearing: No Endocrine: No Gastrointestinal Disorders: No Genitourinary: No Hepatitis: No Hiatal Hernia: No Hypertension: No Immune Disorder: No Musculoskeletal: Yes (MULTIPLE FRACTURES IN PAST) Neurologic: No Psychiatric: No Reproductive: No Respiratory: No Immunizations Current: No Thyroid Disease: No Past Surgical History Abdominal Surgery: No Body Medical Devices: RODS IN BACK Cardiac Surgery: No Ear Surgery: No Endocrine Surgery: No Eye Surgery: No Genitourinary Surgery: No Gynecologic Surgery: No Neurologic Surgery: Yes (RODS IN BACK ) Oral Surgery: No Pacemaker: No Thoracic Surgery: No Other Surgery: Yes Social History Alcohol Use: No Tobacco Use: Yes (1/2 ppd) Substance Use: No Allergies-Medications (Allergen,Severity, Reaction): Coded Allergies: morphine (Unverified Adverse Reaction, Unknown, Nausea/Vomiting, 06/21/17) Reported Meds & Prescriptions Reported Meds & Active Scripts Active No Active Prescriptions or Reported Medications Review of Systems Except as stated in HPI: all other systems reviewed are Neg Physical Exam Narrative GENERAL: Alert male in no distress. SKIN: Warm and dry. Multiple healing abrasions to the right hand. Patient denies any possibility that these are fight bite injuries. No evidence of infection HEAD: Normocephalic. EYES: No scleral icterus. No injection or drainage. NECK: Supple, trachea midline. No JVD or lymphadenopathy. MUSCULOSKELETAL: No cyanosis, or edema. Right upper extremity: Tenderness and mild swelling to the dorsal aspect of the right hand. No deformity. Patient is able to fully flex and extend the wrist and all fingers. Normal sensation. Brisk cap refill. Data Data Last Documented VS Vital Signs Date Time Temp Pulse Resp B/P (MAP) Pulse Ox O2 Delivery O2 Flow Rate FiO2 06/21/17 10:52 97.9 78 16 144/83 (103) 99 Room Air Orders Orders Hand, Complete ([id number]) (06/21/17 ) [facility] Request For Service (06/21/17 11:59) Ed Discharge Order (06/21/17 12:12) Mandatory Outpatient Referral (06/21/17 12:12) [facility] Medical Decision Making Medical Screen Exam Complete: Yes Emergency Medical Condition: Yes Differential Diagnosis Metacarpal fracture, contusion, finger sprain Narrative Course 27-year-old male here with right hand pain 4 days. X-ray reveal fourth metacarpal fracture. Fracture is in good alignment. The extremity is neurovascularly intact. Patient will be placed in an ulnar gutter splint and sling. Mandatory referral for orthopedic follow-up will be ordered. Patient is instructed to take NSAIDs as needed for pain Diagnosis Primary Impression: Fracture of fourth metacarpal bone of right hand Qualified Codes: S62.304A - Unspecified fracture of fourth metacarpal bone, right hand, initial encounter for closed fracture Referrals: Orthopedist Additional Instructions: Keep the splint in place. Use the sling as needed for support. Take the medication as needed for pain. Hospital will be contacting you to set up a follow-up appointment with orthopedic doctor. Scripts Ibuprofen (Ibuprofen) 800 Mg Tab 800 MG PO Q6HR Y for PAIN, #40 TAB 0 Refills Prov: Carmen Khanna 06/21/17 Disposition: 01 DISCHARGE HOME Condition: Stable Carmen Khanna Jun 21, 2017 12:12
[2017-06-21] MEDS ORDERED: IBUP1TAB7 PO (12:15)
== END 2017-06-21 12:40 | disposition home or self-care (01) ==
LOC: NEPK 10:50
DX: S62.354A Nondisplaced fracture of shaft of fourth metacarpal bone, right hand, initial encounter for closed fracture (principal); X58.XXXA Exposure to other specified factors, initial encounter; Y93.83 Activity, rough housing and horseplay
CPT/HCPCS: 29125; 73130

== ENCOUNTER 2017-07-15 13:25 | Emergency (ER) | payer SELFPAY ==
[~2017-07-15] VITALS: Ht 193 cm; Wt 68.2 kg
[~2017-07-15 13:25] MED LIST changes: -BACT800T5 PO; -HYDR1SOL3 PO; +IBUP1TAB7 PO; -MAGICADU2 SWISH-SWAL; -ZOFR4TAB3 SL; -[UNRECOGNIZED DRUG - CODE] PO
[2017-07-15 13:32] VITALS: BP 130/85; PULSE 87; RESP 16; TEMP 98.2; O2SAT 98
--- NOTE | 2017-07-15 22:16 | PD ---
Physical Exam Date Seen by Provider: Jul 15, 2017 Time Seen by Provider: 19:10 Narrative 27-year-old male presents to the emergency department for evaluation of hand injury. Patient states he had a fractured hand and was seen on June 21, 2017. Injury occurred on June 19. He states he was told that he had surgical contact him for him to be seen, but states he has not been contacted yet. He has not tried to make an appointment himself. He denies any pain at this time. Data Data Last Documented VS Vital Signs Date Time Temp Pulse Resp B/P (MAP) Pulse Ox O2 Delivery O2 Flow Rate FiO2 07/15/17 13:32 98.2 87 16 130/85 (100) 98 MDM Supervised Visit with KATHY: No Narrative Course 27-year-old male presents to the emergency department because a hand surgeon has not yet contact him after he fractured his hand. He reports no pain at this time. Patient initially was seen in triage. Before patient to medical bed , he left AGAINST MEDICAL ADVICE. Diagnosis Primary Impression: Left against medical advice Additional Impression: Hand fracture Qualified Codes: S62.91XS - Unspecified fracture of right wrist and hand, sequela Disposition: 07 AGAINST MEDICAL ADVICE Yaquelin Escobedo Jul 15, 2017 22:16
== END 2017-07-15 19:10 | disposition left against medical advice (07) ==
LOC: NED 13:25
DX: S62.91XD Unspecified fracture of right hand, subsequent encounter for fracture with routine healing (principal); X58.XXXD Exposure to other specified factors, subsequent encounter
CPT/HCPCS: 99281

== ENCOUNTER 2017-07-26 21:00 | Emergency (ER) | payer SELFPAY ==
[2017-07-26 21:13] VITALS: BP 125/76; PULSE 89; RESP 20; TEMP 98.1; O2SAT 97
--- NOTE | 2017-07-26 23:04 | PD ---
HPI Chief Complaint: Musculoskeletal Complaint Time Seen by Provider: 22:53 Travel History International Travel<30 days: No Contact w/Intl Traveler<30days: No Traveled to known affect area: No History of Present Illness HPI 27yo M with no significant PMH presents to the ED for evaluation of his right hand. Pt had xray on 06/21/17 and found to have 4th metacarpal fracture. Pt injured it on 06/19/17. Pt has kept his splint on since 06/21/17 and has not been able to follow up with hand. Denies any new injury. Denies any focal weakness or numbness. PFSH Past Medical History Cancer: No Cardiovascular Problems: No Diabetes: No Diminished Hearing: No Endocrine: No Gastrointestinal Disorders: No Genitourinary: No Hepatitis: No Hiatal Hernia: No Hypertension: No Immune Disorder: No Musculoskeletal: Yes (MULTIPLE FRACTURES IN PAST) Neurologic: No Psychiatric: No Reproductive: No Respiratory: No Immunizations Current: No Thyroid Disease: No Influenza Vaccination: No Past Surgical History Abdominal Surgery: No Body Medical Devices: RODS IN BACK Cardiac Surgery: No Ear Surgery: No Endocrine Surgery: No Eye Surgery: No Genitourinary Surgery: No Gynecologic Surgery: No Neurologic Surgery: Yes (RODS IN BACK ) Oral Surgery: No Pacemaker: No Thoracic Surgery: No Other Surgery: Yes Social History Alcohol Use: No Tobacco Use: Yes (2 ppd) Substance Use: No Allergies-Medications (Allergen,Severity, Reaction): Coded Allergies: morphine (Verified Adverse Reaction, Unknown, Nausea/Vomiting, 07/26/17) Reported Meds & Prescriptions Reported Meds & Active Scripts Active Review of Systems Except as stated in HPI: all other systems reviewed are Neg Physical Exam Narrative GENERAL: 27yo M not in distress. SKIN: Focused skin assessment warm/dry. HEAD: Atraumatic. Normocephalic. CARDIOVASCULAR: Regular rate and rhythm. No murmur appreciated. RESPIRATORY: No accessory muscle use. Clear to auscultation. Breath sounds equal bilaterally. GASTROINTESTINAL: Abdomen soft, non-tender, nondistended. MUSCULOSKELETAL: Right hand: Splint removed. FROM in all digits. No ttp right 4th mid metacarpal. Radial pulse 2+. Sensation intact. NEUROLOGICAL: Awake and alert. No obvious cranial nerve deficits. Motor grossly within normal limits. Normal speech. PSYCHIATRIC: Appropriate mood and affect; insight and judgment normal. Data Data Last Documented VS Vital Signs Date Time Temp Pulse Resp B/P (MAP) Pulse Ox O2 Delivery O2 Flow Rate FiO2 07/26/17 23:33 73 18 117/62 (80) 97 Room Air 07/26/17 21:13 98.1 Orders Orders Hand, Limited (2vws) (07/26/17 ) Ed Discharge Order (07/27/17 00:17) Mandatory Outpatient Referral (07/27/17 00:17) MDM Medical Decision Making Medical Screen Exam Complete: Yes Emergency Medical Condition: Yes Differential Diagnosis 4th metacarpal fracture Narrative Course 27yo M with right 4th metacarpal fracture after injury on 06/19/17 here for follow up because he was not able to follow up with hand. Ulnar gutter splint was removed. Neurovascular intact. Pt has no pain to palpation over right 4th metacarpal. Repeat xray right hand showed partial healing of 4th metacarpal shaft fracture with interval development of some displacement and angulation of fracture line. There is medial and lateral bridging callus. Pt has already been immobilized for over 4 weeks and it is partially healed. Mandatory referral placed for hand. Return precautions given. Diagnosis Primary Impression: Fracture of fourth metacarpal bone of right hand Qualified Codes: S62.324D - Displaced fracture of shaft of fourth metacarpal bone, right hand, subsequent encounter for fracture with routine healing Referrals: Isabelle Lozano MD call for appointment Patient Instructions: General Instructions Departure Forms: Tests/Procedures Additional Instructions: Please call hand clinic tomorrow for a follow up appointment. Return to the ED if symptoms worsen. Med/Other Pt SpecificInfo: No Change to Meds Disposition: 01 DISCHARGE HOME Condition: Stable Leona Pratt DO Jul 26, 2017 23:04
[2017-07-26 23:33] VITALS: BP 117/62; PULSE 73; RESP 18; O2SAT 97
--- NOTE | 2017-07-27 00:05 | RADRPT ---
EXAM DATE/TIME: 07/26/2017 23:26 [facility] COMPARISON: HAND RIGHT COMPLETE ([id number]), June 21, 2017, 11:17. INDICATIONS : Right hand pain. Prior fracture follow up. MEDICAL HISTORY : None. SURGICAL HISTORY : Patient stated previous wrist surgery. ENCOUNTER: Sequela ACUITY: 1 month PAIN SCORE: 8/10 LOCATION: Right hand, fourth metacarpal. FINDINGS: 2 view examination of the right hand demonstrates evidence of healing of the the fracture of the prox imal 3rd shaft of the 4th metacarpal with bridging callus. The fracture line is still discernible an d appears wider than on prior examination 06/21/17. There is also minimal lateral and palmar angulat ion which is a new finding. The remainder of the osseous structures of the hand are intact. CONCLUSION: There is evidence of partial healing of the 4th metacarpal shaft fracture with interval development o f some displacement and angulation of the fracture line. There is medial and lateral bridging callus . Hugh Doll MD on July 27, 2017 at 0:02 Board Certified Radiologist. This report was verified electronically.
== END 2017-07-27 00:40 | disposition home or self-care (01) ==
LOC: PHEFT 21:00
DX: S62.324D Displaced fracture of shaft of fourth metacarpal bone, right hand, subsequent encounter for fracture with routine healing (principal); X58.XXXD Exposure to other specified factors, subsequent encounter
CPT/HCPCS: 73120; 99283